=== PATIENT | male | born 1960 | race African-American/Black ===

== ENCOUNTER 2020-02-19 10:18 | Emergency (ER) | payer MEDICARE, OTHER ==
[~2020-02-19] VITALS: Ht 177.8 cm; Wt 84.0 kg
[2020-02-19 10:21] VITALS: BP 178/100
== END 2020-02-19 12:24 | disposition home or self-care (01) ==
LOC: ER 10:18
DX: S63.692A Other sprain of right middle finger, initial encounter (principal); W18.39XA Other fall on same level, initial encounter; Y93.89 Activity, other specified; Y92.89 Other specified places as the place of occurrence of the external cause; Y99.8 Other external cause status
CPT/HCPCS: 73140; 99283

== ENCOUNTER 2024-09-07 14:20 | Emergency (ER) | payer OTHER, MEDICAID ==
[~2024-09-07] VITALS: Ht 175.3 cm; Wt 95.0 kg
[2024-09-07 14:34] VITALS: O2SAT 100
[2024-09-07] MEDS: MECLIZINE 25MG TABLET PO ONE (16:33)
[2024-09-07] MEDS: ASPIRIN 81MG TABLET PO ONE (16:33)
[2024-09-07] MEDS ORDERED: MECL-299 MT (16:53)
[2024-09-07 16:54] LABS: BASOPHILS % 0.7 % (0.0-2.0); EOSINOPHILS % 0.5 % (0.0-5.0); HEMATOCRIT. 45.8 % (42.0-52.0); HEMOGLOBIN. 15.5 g/dL (14.0-18.0); LYMPHOCYTES % 36.7 % (20.0-50.0); MEAN CORPUSCULAR HEMOGLOBIN 31.3 pg (28.0-32.0); MEAN CORPUSCULAR HGB CONC 33.9 g/dL (31.0-37.0); MEAN CORPUSCULAR VOLUME 92.2 fL (80.0-94.0); MEAN PLATELET VOLUME 8.2 fl (7.4-10.4); MONOCYTES % 6.7 % (2.0-8.0); NEUTROPHILS % 55.4 % (40.0-76.0); PLATELET 220 x1000/uL (130-400); RED BLOOD CELL COUNT 4.97 mill/uL (4.7-6.1); RED CELL DISTRIBUTION WIDTH 13.8 % (11.6-14.6); WHITE BLOOD COUNT 8.4 x1000/uL (4.5-11.0)
[2024-09-07 16:57] LABS: CHLORIDE 108 mEq/L (98-107); POTASSIUM 4.2 mEq/L (3.5-5.1); SODIUM 140 mEq/L (136-145)
[2024-09-07 16:59] LABS: CALCIUM 9.8 mg/dL (8.7-10.4); CARBON DIOXIDE 23 mEq/L (21-32)
[2024-09-07 17:04] LABS: CREATININE 0.9 mg/dL (0.6-1.3); GLUCOSE 96 mg/dL (70-105); UREA NITROGEN BLOOD 11 mg/dL (9-23)
[2024-09-07 17:07] LABS: TROPONIN I HIGH SENSITIVITY < 4 ng/L (3.0-53)
[2024-09-07 17:14] VITALS: BP 154/85; PULSE 67; RESP 18; TEMP 36.8; O2SAT 100
== END 2024-09-07 18:08 | disposition admitted as inpatient to this hospital (09) ==
LOC: ER 14:20
DX: R42 Dizziness and giddiness (principal); I10 Essential (primary) hypertension
CPT/HCPCS: 99285; 70450; 71045; 80048; 83880; 85025; 84484; 36415; 93005; J8597